=== PATIENT | male | born 1960 | race Caucasian/White ===

== ENCOUNTER 2019-11-26 14:12 | Outpatient (CLI) | payer BC, SELFPAY ==
[2019-11-26 14:24] LABS: Add Urine Microscopic? NO
[2019-11-26 14:59] LABS: Creatinine Urine, Random 166 mg/dL (39-259)
[2019-11-26 15:25] LABS: Microalbum Creatinine Ratio Ur 6 mg/dL (0-20); Microalbumin Random Urine 1 ug/dL (0-20)
[2019-11-26 15:44] LABS: Urine Appearance Cloudy (CLEAR); Urine Color Yellow (Yellow)
[2019-11-26 15:45] LABS: Glucose Urine UA 4+ (Normal); Protein Urine Neg (Negative); Specific Gravity, Urine 1.025 (1.005-1.030); pH Urine 5 (5-7)
[2019-11-26 15:46] LABS: Bilirubin Urine Neg (NEGATIVE); Blood Urine Neg (Negative); Ketones Urine Negative (Negative); Leukocyte Esterase Urine Negative (Negative); Nitrate Urine Negative (Negative); Urobilinogen Urine Norm (Negative)
[2019-11-26 15:50] LABS: Estmated Average Glucose 214; Hemoglobin A1C 9.1 % (4.0-6.0)
[2019-11-27 08:58] LABS: Anion Gap 16.7 (5-19); Blood Urea Nitrogen 10 mg/dL (8-23); Calcium 10.1 mg/dL (8.5-10.5); Carbon Dioxide 23 mmol/L (22-29); Chloride 100 mmol/L (98-107); Glomerular Filtration Rate 86.1 mL/min (90-130); Glucose 254 mg/dL (65-115); Osmolality Calculated 283 mOsm/kg (285-295); Potassium 5.7 mmol/L (3.5-5.1); Sodium 134 mmol/L (136-145)
== END 2019-11-26 14:13 | disposition home or self-care (01) ==
LOC: LAB 14:21
PROVIDERS: Visit Provider Nurse Practitioner Family
DX: E11.9 Type 2 diabetes mellitus without complications (principal)
CPT/HCPCS: 80048; 81003; 82044; 83036

== ENCOUNTER 2019-12-23 15:44 | Outpatient (CLI) | payer BC, SELFPAY ==
[2019-12-23 16:59] LABS: Anion Gap 15.9 (5-19); Blood Urea Nitrogen 15 mg/dL (8-23); Calcium 10.3 mg/dL (8.5-10.5); Carbon Dioxide 26 mmol/L (22-29); Chloride 100 mmol/L (98-107); Glucose 161 mg/dL (65-115); Osmolality Calculated 282 mOsm/kg (285-295); Potassium 5.9 mmol/L (3.5-5.1); Sodium 136 mmol/L (136-145)
== END 2019-12-23 15:45 | disposition home or self-care (01) ==
LOC: LAB 15:47
PROVIDERS: Visit Provider Nurse Practitioner Family
DX: E11.9 Type 2 diabetes mellitus without complications (principal)
CPT/HCPCS: 80048

== ENCOUNTER 2020-01-01 16:19 | Outpatient (CLI) | payer BC, SELFPAY ==
[2020-01-01 23:49] LABS: Blood Urea Nitrogen 18 mg/dL (8-23); Calcium 10.7 mg/dL (8.5-10.5); Carbon Dioxide 22 mmol/L (22-29); Chloride 101 mmol/L (98-107); Glomerular Filtration Rate 98.6 mL/min (90-130); Glucose 213 mg/dL (65-115); Osmolality Calculated 281 mOsm/kg (285-295); Sodium 134 mmol/L (136-145)
== END 2020-01-01 16:20 | disposition home or self-care (01) ==
LOC: LAB 16:20
PROVIDERS: Visit Provider Nurse Practitioner Family
DX: E11.9 Type 2 diabetes mellitus without complications (principal)
CPT/HCPCS: 80048

== ENCOUNTER 2020-01-14 09:26 | Day surgery (SDC) | payer BC, SELFPAY ==
[2020-01-13 13:23] VITALS: BMI 36.9
[2020-01-14 10:00] VITALS: BP 149/88; PULSE 73; RESP 18; TEMP 36.5; O2SAT 96
--- NOTE | 2020-01-14 10:29 | ANES.PREANE2 ---
Pre-Anesthetic Assessment Pre-Anesthetic Assessment: Height/Weight: Height 1.8 m Weight 120.202 kg Temp Pulse Resp BP Pulse Ox 97.7 F 73 18 149/88 96 01/14/20 10:00 01/14/20 10:00 01/14/20 10:00 01/14/20 10:00 01/14/20 10:00 Preop Diagnosis: GI Proposed Procedure: Operation Date: 01/14/20 11:00 Proposed Procedures p Colonoscopy/96230 Z12.11(Not Applicable) - Renato Lin MD Familial anesthetic complications: NONE Was Beta Elvia taken within 24 hours: N/A Last intake: Intake Last Liquid Date 01/13/20 Last Liquid Time 23:55 Last Solid Date 01/12/20 Last Solid Time 18:00 Social: Social History: Tobacco and No alcohol Exam: Pre-Anes Outpt Exam: alert, oriented x 3, clear to auscultation bilaterally and regular rate & rhythm Airway: Cervical ROM: WNL MP: 2 Dentition: False Pulmonary: Pulmonary: None reported Metabolic: Metabolic: DM and Morbid obesity Anesthetic Plan: ASA status: 2 Anesthesia: MAC Risk of > 500 ml blood loss (7ml/kg in children): No PFSH Anesthesia PFSH: Social History (Updated 01/13/20 @ 13:28 by Pat Tuttle) Smoking and tobacco status: current every day smoker Data Anesthesia Cardiac Studies: No Data to Display
[2020-01-14] MEDS: sodium chloride 0.9% 1,000 ML 30 ML IV (10:33)
[2020-01-14 10:42] LABS: Glucose Point of Care 160 mg/dL (70-110)
--- NOTE | 2020-01-14 10:50 | PM.OPSURHP ---
Providers/Chief Complaint Primary Care Provider: ROD Mccauley Chief Complaint: UNABLE TO SEE DX History of Present Illness Liam Dudley is a 59 year old male here for screening colonoscopy Review of Systems General: Reports: 10 or more systems reviewed and unremarkable except in HPI and below Medications/Allergies Home Medications Medication Instructions Recorded Confirmed Last Taken Type metformin 500 mg tablet 500 mg PO BID 12/24/19 01/14/20 01/12/20 History naproxen 500 mg tablet 500 mg PO BID 12/24/19 01/13/20 Unknown History Allergies Allergy/AdvReac Type Severity Reaction Status Date / Time No Known Allergies Allergy Unverified 12/24/19 10:14 PFSH PFSH: Medical History (Updated 01/14/20 @ 10:51 by Renato Lin MD) Type 2 diabetes mellitus Social History (Updated 01/13/20 @ 13:28 by Pat Tuttle) Smoking and tobacco status: current every day smoker Vital Signs Vitals Signs: Last Vital Signs Temp 97.7 F 01/14/20 10:00 Pulse 73 01/14/20 10:00 Resp 18 01/14/20 10:00 BP 149/88 01/14/20 10:00 Pulse Ox 96 01/14/20 10:00 Weight: Weight last 48 hrs Weight 265 lb Physical Exam Narrative: EXAM NARRATIVE: Abdomen: soft A&P Assessment and plan (1) Encounter for screening colonoscopy: Status: Acute Coding Level of Care Code Acute Executive Candidate Developer for Chg Fwd Diagnoses Encounter for screening colonoscopy Z12.11
[2020-01-14 11:29] VITALS: BP 126/79; PULSE 71; RESP 18; TEMP 36.3; O2SAT 93
[2020-01-14 11:40] VITALS: BP 145/82; PULSE 74; RESP 18; O2SAT 97
== END 2020-01-14 12:32 | disposition home or self-care (01) ==
PROVIDERS: PCP Nurse Practitioner Family; Visit Provider Surgery
PROC: 0DJD8ZZ Inspection of Lower Intestinal Tract, Via Natural or Artificial Opening Endoscopic (ICD-10-PCS; CPT 45378; principal; 2020-01-14 11:00)
DX: Z12.11 Encounter for screening for malignant neoplasm of colon (principal); E11.9 Type 2 diabetes mellitus without complications; Z79.84 Long term (current) use of oral hypoglycemic drugs; D12.5 Benign neoplasm of sigmoid colon; K64.8 Other hemorrhoids; E66.01 Morbid (severe) obesity due to excess calories; Z68.37 Body mass index [BMI] 37.0-37.9, adult; F17.210 Nicotine dependence, cigarettes, uncomplicated
CPT/HCPCS: 12345; 36416; 45385; 82962; 88305; J2704; J7030

== ENCOUNTER 2020-03-11 12:05 | Outpatient (CLI) | payer BC, SELFPAY ==
[2020-03-11 15:46] LABS: Estmated Average Glucose 192; Hemoglobin A1C 8.3 % (4.0-6.0)
[2020-03-11 15:58] LABS: Anion Gap 17.5 (5-19); Blood Urea Nitrogen 11 mg/dL (8-23); Calcium 10.6 mg/dL (8.5-10.5); Carbon Dioxide 26 mmol/L (22-29); Chloride 100 mmol/L (98-107); Chol HDL Ratio 3.94 mg/dL (1.0-5.00); Cholesterol 134 mg/dL (0-200); Glomerular Filtration Rate 86.1 mL/min (90-130); Glucose 217 mg/dL (65-115); HDL Cholesterol 34 mg/dL (60-100); LDL Cholesterol Calculated 63 mg/dL (50-129); LDL HDL Ratio 1.85 RATIO (0.00-3.22); Osmolality Calculated 294 mOsm/kg (285-295); Potassium 4.5 mmol/L (3.5-5.1); Sodium 139 mmol/L (136-145); Triglycerides 187 mg/dL (0-150)
[2020-03-11 18:27] LABS: Creatinine Urine, Random 215 mg/dL (39-259); Microalbum Creatinine Ratio Ur 9 mg/dL (0-20); Microalbumin Random Urine 2 ug/dL (0-20)
[2020-03-11 20:47] LABS: Add Urine Microscopic? YES; Bilirubin Urine Neg (Negative); Blood Urine Neg (Negative); Glucose Urine UA 4+ (Normal); Ketones Urine Negative (Negative); Leukocyte Esterase Urine Negative (Negative); Nitrate Urine Negative (Negative); Protein Urine Neg (Negative); Urine Appearance Cloudy (CLEAR); Urine Color Yellow (Yellow); Urobilinogen Urine Norm (Negative); pH Urine 5 (5-7)
[2020-03-11 20:48] LABS: Bacteria Urine 3+ /hpf; Calcium Oxalate Crystals Urine 0-4 /hpf; RBC Urine RARE /hpf (0-2); Squamous Epithelial Cell Urine RARE /hpf (0-5); WBC Urine RARE /hpf (0-5)
== END 2020-03-11 12:06 | disposition home or self-care (01) ==
LOC: LAB 12:07
PROVIDERS: PCP Nurse Practitioner Family; Visit Provider Nurse Practitioner Family
DX: Z12.5 Encounter for screening for malignant neoplasm of prostate (principal); E11.65 Type 2 diabetes mellitus with hyperglycemia; R03.0 Elevated blood-pressure reading, without diagnosis of hypertension
CPT/HCPCS: 80048; 80061; 81001; 82044; 83036; 84153; 87086